=== PATIENT | male | born 1945 | race Two or more races ===

== ENCOUNTER 2025-06-10 22:26 | Inpatient (IN) | payer MEDICARE, OTHER ==
[~2025-06-10] VITALS: Ht 167.6 cm; Wt 68.1 kg
[2025-06-10] MEDS ORDERED: ALBUTEROL SULFATE 2.5 MG/3 ML NEBU ONE (23:28)
[2025-06-10] MEDS ORDERED: IPRATROPIUM BROMIDE 0.5 MG/2.5 ML NEBU ONE (23:28)
[2025-06-10] MEDS: IPRATROPIUM BROMIDE 0.5 MG/2.5 ML NEBU NEB ONE (23:30)
[2025-06-10] MEDS: ALBUTEROL SULFATE 2.5 MG/3 ML NEBU NEB ONE (23:30)
[2025-06-10 23:41] VITALS: O2SAT 95
[2025-06-10 23:50] LABS: PLATELET COUNT (AUTO) 237 K/uL (152-348); RED BLOOD CELL COUNT(AUTO) 4.32 MIL/uL (4.06-5.63); RED CELL DISTRIBUTION WIDTH 14.8 % (12.1-16.2); WHITE BLOOD COUNT (AUTO) 14.8 K/uL (3.6-10.2)
[2025-06-10 23:59] LABS: CREATININE 1.4 mg/dL (0.6-1.3); SODIUM SERUM 134 mmol/L (136-145); UREA NITROGEN, BLOOD 40 mg/dL (7-18)
[2025-06-11] VITALS (19 sets, daily range): BP systolic 96–106; BP diastolic 40–53; TEMP 97.6–98.1; O2SAT 92–99
[2025-06-11 00:05] LABS: ASPARTATE AMINOTRANSFERASE 16 U/L (15-37); TOTAL PROTEIN, SERUM 7.9 g/dL (6.4-8.2)
[2025-06-11] MEDS ORDERED: METH4TAB16 PO (01:16)
[2025-06-11] MEDS ORDERED: FLUT1BLS6 IH (01:16)
[2025-06-11] MEDS ORDERED: AZIT250T13 PO (01:16)
[2025-06-11] MEDS ORDERED: LEVO500T90 PO (01:16)
[2025-06-11] MEDS ORDERED: BENZ-13 PO (01:16)
[2025-06-11] MEDS ORDERED: PANT40TA49 PO (01:17)
[2025-06-11] MEDS ORDERED: OLME5TAB3 PO (01:17)
[2025-06-11] MEDS ORDERED: TAMS-3 PO (01:17)
[2025-06-11] MEDS ORDERED: ASPI81TA31 PO (01:17)
[2025-06-11] MEDS ORDERED: EZET10TA15 PO (01:17)
[2025-06-11] MEDS ORDERED: LORA10CA PO (01:17)
[2025-06-11] MEDS ORDERED: MOXI3DRO10 EACHEYE (01:17)
[2025-06-11] MEDS ORDERED: DUTA0.5C37 PO (01:17)
[2025-06-11] MEDS ORDERED: ACETAMINOPHEN 325 MG TABLET PO PRN (01:45)
[2025-06-11] MEDS ORDERED: MAGNESIUM HYDROXIDE 30 ML LIQUID UDC PO PRN (01:45)
[2025-06-11] MEDS ORDERED: REMEDY ESSENTIAL ZINC PASTE 113 GM TP PRN (01:45)
[2025-06-11] MEDS ORDERED: ONDANSETRON 4 MG/2 ML VIAL IV PRN (01:45)
[2025-06-11] MEDS: ALBUTEROL SULFATE 2.5 MG/3 ML NEBU NEB SCH (03:49)
[2025-06-11] MEDS: IPRATROPIUM BROMIDE 0.5 MG/2.5 ML NEBU NEB ONE (03:49)
[2025-06-11] MEDS: IPRATROPIUM BROMIDE 0.5 MG/2.5 ML NEBU NEB SCH (03:49)
[2025-06-11] MEDS ORDERED: ALBUTEROL SULFATE 2.5 MG/3 ML NEBU NEB SCH (04:00)
[2025-06-11] MEDS: GUAIFENESIN/DEXTROMETHORPHAN 5 ML UDC PO PRN (04:27)
[2025-06-11] MEDS: PANTOPRAZOLE SODIUM 40 MG TABLET.DR PO SCH (06:09)
[2025-06-11] MEDS: HEPARIN SODIUM,PORCINE 5,000 UNITS/ML VIAL SQ SCH (09:32)
[2025-06-11] MEDS ORDERED: [UNRECOGNIZED DRUG - OTHER] EACHEYE (10:33)
[2025-06-11] MEDS ORDERED: ROSU20TA2 PO (10:34)
[2025-06-11] MEDS ORDERED: METO-358 PO (10:34)
[2025-06-11] MEDS ORDERED: VIT1CAPS9 PO (10:41)
[2025-06-11] MEDS: AZITHROMYCIN IV 500 MG in IV DEXTROSE 5% 250 ML IV SCH (11:06)
[2025-06-11 18:04] LABS: *BILIRUBIN,URIN NEGATIVE (NEGATIVE); *BLOOD, URINE NEGATIVE (NEGATIVE); *CLARITY,URINE CLEAR (CLEAR); *COLOR,URINE YELLOW (YELLOW); *KETONES,URINE TRACE (NEGATIVE); *PROTEIN,URINE NEGATIVE (NEGATIVE); *UROBILINOGEN,URINE 0.2 E.U./dl (NORMAL); LEUKOCYTE ESTERASE ,URINE NEGATIVE (NEGATIVE); NITRITE, URINE NEGATIVE (NEGATIVE); UGLUCOSE TRACE (NEGATIVE)
[2025-06-11 18:11] LABS: *CREATININE,URINE 52.6 mg/dL (30-125); *SODIUM RNDM,URINE 14.0 mmol/L (40-220); *URINE TOTAL PROTEIN RANDOM 18.2 mg/dL (<150/24HR)
[2025-06-11 18:37] LABS: SQUAMOUS EPITHELIAL CELL,UR FEW /HPF (NONE SEEN)
[2025-06-11] MEDS ORDERED: ASPIRIN 81 MG TAB.CHEW PO SCH (20:30)
[2025-06-11] MEDS: BENZONATATE 100 MG CAPSULE PO SCH (22:03)
[2025-06-12] VITALS (10 sets, daily range): BP systolic 110–122; BP diastolic 55–70; TEMP 97.7–98.4; O2SAT 93–99
[2025-06-12 06:40] LABS: PLATELET COUNT (AUTO) 241 K/uL (152-348); RED BLOOD CELL COUNT(AUTO) 3.86 MIL/uL (4.06-5.63); RED CELL DISTRIBUTION WIDTH 14.3 % (12.1-16.2); WHITE BLOOD COUNT (AUTO) 15.4 K/uL (3.6-10.2)
[2025-06-12 07:08] LABS: ASPARTATE AMINOTRANSFERASE 11 U/L (15-37); CREATININE 1.6 mg/dL (0.6-1.3); SODIUM SERUM 137 mmol/L (136-145); TOTAL PROTEIN, SERUM 6.5 g/dL (6.4-8.2); UREA NITROGEN, BLOOD 41 mg/dL (7-18)
[2025-06-12] MEDS: EZETIMIBE 10 MG TABLET PO SCH (08:20)
[2025-06-12] MEDS: DUTASTERIDE 0.5 MG CAPSULE PO SCH (08:20)
[2025-06-12] MEDS: ATORVASTATIN 40 MG TABLET PO SCH (08:20)
[2025-06-12] MEDS: LOSARTAN POTASSIUM 50 MG TABLET PO SCH (08:21)
[2025-06-12] MEDS: METOPROLOL SUCCINATE XL 50 MG TAB.SR.24H PO SCH (08:22)
[2025-06-12] MEDS ORDERED: Medication Not On Formulary EA (Olmesartan Medoxomil (Benicar) 20 MG) PO SCH (09:00)
[2025-06-12] MEDS ORDERED: PRED20TA PO (11:02)
[2025-06-12] MEDS ORDERED: AZIT500T4 PO (11:02)
[2025-06-12] MEDS ORDERED: CEFP200T14 PO (11:02)
[2025-06-12 12:00] LABS: CREATINE KINASE, TOTAL 114 U/L (39-308)
[2025-06-12] MEDS ORDERED: TAMSULOSIN HCL 0.4 MG CAP.SR.24H PO SCH (21:00)
[2025-06-13 10:07] LABS: PTH, INTACT 35 pg/mL (15-65)
[2025-06-13 19:09] LABS: ADENOVIRUS Not Detected (Not Detected); CORONAVIRUS 229E Not Detected (Not Detected); CORONAVIRUS HKU1 Not Detected (Not Detected); CORONAVIRUS NL63 Not Detected (Not Detected); CORONAVIRUS OC43 Not Detected (Not Detected); NP BORDETELLA PERTUSIS Not Detected (Not Detected); NP CHLAMYDOPHILA PNEUMONIAE Not Detected (Not Detected); NP HUMAN METAPNEUMOVIRUS Not Detected (Not Detected); NP HUMAN RHINO/ENTERO VIRUS Detected (Not Detected); NP INFLUENZA A Not Detected (Not Detected); NP INFLUENZA A/H1 Not Detected (Not Detected); NP INFLUENZA A/H1-2009 Not Detected (Not Detected); NP INFLUENZA A/H3 Not Detected (Not Detected); NP INFLUENZA B Not Detected (Not Detected); NP MYCOPLASMA PNEUMONIAE Not Detected (Not Detected); NP PARAINFLUENZA 1 Not Detected (Not Detected); NP PARAINFLUENZA 2 Not Detected (Not Detected); NP PARAINFLUENZA 3 Not Detected (Not Detected); NP PARAINFLUENZA 4 Not Detected (Not Detected); NP RESPIRATORY SYNCYTIAL VIRUS Not Detected (Not Detected)
[2025-06-23 05:10] LABS: A/G RATIO 0.8 (0.7-1.7); BETA GLOBULIN 0.7 g/dL (0.7-1.3); GLOBULIN, TOTAL 3.1 g/dL (2.2-3.9); M-SPIKE Not Observed g/dL (Not Observed); PROTEIN, TOTAL 5.7 g/dL (6.0-8.5)
== END 2025-06-12 12:50 | disposition home or self-care (01) | DRG 202 ==
LOC: ER 22:29 → TELE3 06-11 01:41
PROVIDERS: ADMIT Student in an Organized Health Care Education/Training Program; ATTEND Nurse Practitioner Acute Care
DX: J45.901 Unspecified asthma with (acute) exacerbation (principal); J44.0 Chronic obstructive pulmonary disease with (acute) lower respiratory infection; J44.1 Chronic obstructive pulmonary disease with (acute) exacerbation; N17.9 Acute kidney failure, unspecified; J20.9 Acute bronchitis, unspecified; I25.10 Atherosclerotic heart disease of native coronary artery without angina pectoris; Z79.82 Long term (current) use of aspirin; Z79.899 Other long term (current) drug therapy; I11.9 Hypertensive heart disease without heart failure; E78.5 Hyperlipidemia, unspecified; I44.7 Left bundle-branch block, unspecified; K21.9 Gastro-esophageal reflux disease without esophagitis; I25.2 Old myocardial infarction; N40.0 Benign prostatic hyperplasia without lower urinary tract symptoms; Z98.61 Coronary angioplasty status; T38.0X5A Adverse effect of glucocorticoids and synthetic analogues, initial encounter; D72.829 Elevated white blood cell count, unspecified; R09.89 Other specified symptoms and signs involving the circulatory and respiratory systems
CPT/HCPCS: 36415; 71045; 76770; 83605; 83735; 83970; 84100; 84155; 84165; 84300; 84443; 84484; 85025; 85730; 87040; 93307; 94640; 94760; A4606; G0378; J0456; J0696; J1644; J2919; J3590; J7040; J7050